=== PATIENT | male | born 1975 | race American Indian/Alaskan Native ===

== ENCOUNTER 2020-04-10 10:20 | Emergency (ER) | payer SELFPAY ==
[2020-04-10 10:26] VITALS: BP 133/89
--- NOTE | 2020-04-10 10:28 | Event Note ---
ED Screening Note Date of service: 04/10/20 Time: 10:27 ED Screening Note: Patient complains of chest tightness x2 hours History of hypertension Denies any past heart history This initial assessment/diagnostic orders/clinical plan/treatment(s) is/are subject to change based on patients health status, clinical progression and re- assessment by fellow clinical providers in the ED. Further treatment and workup at subsequent clinical providers discretion. Patient/guardian urged not to elope from the ED as their condition may be serious if not clinically assessed and managed. Initial orders include: Labs Chest x-ray EKG
== END 2020-04-10 15:00 | disposition left against medical advice (07) ==
LOC: ED 10:20
DX: R07.9 Chest pain, unspecified (principal); Z53.21 Procedure and treatment not carried out due to patient leaving prior to being seen by health care provider
CPT/HCPCS: 93005